=== PATIENT | female | born 1965 | race Two or more races ===

== ENCOUNTER 2023-08-26 09:35 | Day surgery (SDC) | payer BC ==
[~2023-08-26] VITALS: Ht 172.7 cm; Wt 103.4 kg
[~2023-08-26 09:35] MED LIST: ALL10TAB3 PO; CALC600T57 PO; D3 H2000 PO; ESTR62CR PV; LOSA25TA13 PO; MIDAZOLAM INJ 2MG/2ML VIAL As Ordered ONE; OMEP-173 PO; ROSU10TA6 PO; fentaNYL 100 MCG/2 ML INJECTION As Ordered ONE
[2023-08-26] MEDS: CYCLOPENTOLATE 1% OPHTH SOLN 2ML BTL OS SCH (10:22)
[2023-08-26] MEDS: PROPARACAINE 0.5% OPHTH SOL 15ML OS ONE (10:22)
[2023-08-26] MEDS: PHENYLEPHRINE 2.5% OPHTH SOL 2ML OS SCH (10:23)
[2023-08-26] MEDS: TROPICAMIDE 1% OPHTH SOLN 15ML OS SCH (10:23)
[2023-08-26] MEDS: OFLOXACIN 0.3 % (OCUFLOX) OPTH SOL 5ML OS SCH (10:23)
[2023-08-26] MEDS: LIDOCAINE 1% SDV 5ML VIAL As Ordered ONE (11:10)
[2023-08-26] MEDS: BSS IRR 500ML/OMIDRIA 4ML IRR BAG (OR ONLY) As Ordered ONE (11:10)
[2023-08-26] MEDS: MOXIFLOXACIN 0.6MG/0.4ML INTRAOCULAR SYRINGE As Ordered ONE (11:10)
[2023-08-26] MEDS ORDERED: DUOVISC (0.50ML VISCOAT/0.85ML PROVISC) OPHTH KIT As Ordered ONE (11:19)
[2023-08-26 11:30] VITALS: BP 126/76; TEMP 98.8; O2SAT 99
== END 2023-08-26 11:50 | disposition home or self-care (01) ==
LOC: M SDC 09:35
PROVIDERS: ATTEND Ophthalmology
DX: H25.12 Age-related nuclear cataract, left eye (principal); I10 Essential (primary) hypertension; E78.5 Hyperlipidemia, unspecified; K44.9 Diaphragmatic hernia without obstruction or gangrene; K21.9 Gastro-esophageal reflux disease without esophagitis; Z79.899 Other long term (current) drug therapy; Z88.0 Allergy status to penicillin
CPT/HCPCS: 66984; 92015; J1097; J2250; J3010; V2787